=== PATIENT | female | born 1970 | race Caucasian/White ===

== ENCOUNTER 2017-02-05 23:07 | Emergency (ER) | payer OTHER ==
[~2017-02-05] VITALS: Ht 157.4 cm; Wt 56.7 kg
[~2017-02-05 23:07] MED LIST: CLARITIN-D 24 H1 TAB PO; CYCLOBENZAPRINE10 MG PO; DIPHENHYDRAMINE25 M2 PO; EPIPEN 2-PAK1 MG/ML MR; FAMOTIDINE20 M1 PO; MEDROL DOSEPAK4 MG PO; NAPROSYN500 MG PO; PAMPRIN MULTI-S1 TAB PO; PONSTEL250 MG PO; VICODIN ES 7501 TAB PO; [UNRECOGNIZED DRUG - OTHER] PO; [UNRECOGNIZED DRUG - OTHER] PO
== END 2017-02-06 01:32 | disposition home or self-care (01) ==
LOC: ED 23:07
DX: S93.402A Sprain of unspecified ligament of left ankle, initial encounter (principal); S90.02XA Contusion of left ankle, initial encounter; Z98.51 Tubal ligation status; Z98.890 Other specified postprocedural states; Z88.8 Allergy status to other drugs, medicaments and biological substances; W10.9XXA Fall (on) (from) unspecified stairs and steps, initial encounter; Y93.89 Activity, other specified; Y92.89 Other specified places as the place of occurrence of the external cause; Y99.9 Unspecified external cause status

== ENCOUNTER 2020-01-30 23:52 | Emergency (ER) | payer SELFPAY ==
[~2020-01-30] VITALS: Ht 157.4 cm; Wt 56.7 kg
[2020-01-31] MEDS ORDERED: TYLENOL W/CODEI1 TA4 PO (03:18)
== END 2020-01-31 03:47 | disposition home or self-care (01) ==
LOC: ED 23:52
DX: S62.396A Other fracture of fifth metacarpal bone, right hand, initial encounter for closed fracture (principal); Z88.8 Allergy status to other drugs, medicaments and biological substances; W22.01XA Walked into wall, initial encounter; Y93.89 Activity, other specified; Y92.89 Other specified places as the place of occurrence of the external cause; Y99.8 Other external cause status

== ENCOUNTER → 2020-02-11 | Outpatient (CLI) | payer SELFPAY ==
[~2020-02-11] MED LIST changes: +TYLENOL W/CODEI1 TA4 PO
== END | disposition home or self-care (01) ==
LOC: ORTHO 02:11
PROVIDERS: ATTEND Orthopaedic Surgery
DX: S62.336A Displaced fracture of neck of fifth metacarpal bone, right hand, initial encounter for closed fracture (principal); X58.XXXA Exposure to other specified factors, initial encounter; Y93.89 Activity, other specified; Y92.89 Other specified places as the place of occurrence of the external cause; Y99.8 Other external cause status

== ENCOUNTER → 2020-07-30 | Outpatient (CLI) | payer SELFPAY | END | disposition home or self-care (01) | LOC: COVID19 12:27 | PROVIDERS: ATTEND Internal Medicine | DX: U07.1 COVID-19 (principal) ==

== ENCOUNTER 2021-09-11 07:53 | Emergency (ER) | payer SELFPAY ==
[~2021-09-11] VITALS: Ht 157.4 cm; Wt 55.3 kg
[2021-09-11 09:42] LABS: BILIRUBIN Negative (Negative); BLOOD Negative (Negative); CLARITY Turbid (Clear); COLOR Yellow (Yellow); GLUCOSE Negative (Negative); KETONE Negative (Negative); NITRITE Negative (Negative); SPECIFIC GRAVITY 1.015 (1.001-1.030)
[2021-09-11 09:43] LABS: BASO % 0.6 % (0.0-1.0); EOS # 0.1 10*3/uL (0.0-0.4); EOS % 1.6 % (1.0-4.0); HEMATOCRIT 42.4 % (37.0-47.0); LYMPH % 14.8 % (27.0-41.0); MEAN CELL VOLUME 89.6 fl (81.0-99.0); MEAN CORPUSCULAR HGB 30.7 pg (27.0-31.0); MEAN CORPUSCULAR HGB CONC 34.2 g/dl (33.0-37.0); MEAN PLATELET VOLUME 10.2 fl (9.6-12.3); MONO # 0.5 10*3/uL (0.1-1.0); MONO % 8.3 % (3.0-9.0); NEUT # 4.8 10*3/uL (2.3-7.9); NEUT % 74.4 % (47.0-73.0); PLATELET COUNT AUTOMATED 322 10*3/uL (130-400); RED BLOOD COUNT 4.73 10*6/uL (4.10-5.10); RED CELL DISTRI WIDTH 12.7 % (0-14.5); WHITE BLOOD COUNT 6.4 10*3/uL (4.8-10.8)
[2021-09-11 09:43] LABS: LEUKO ESTERASE 1+ (Negative); PH 8.5 (4.5-8.0)
[2021-09-11 09:59] LABS: ALKALINE PHOSPHATASE 68 U/L (45-117); BUN 9 mg/dl (7-24); CHLORIDE 109 mmol/L (98-107); CREATININE 0.81 mg/dL (0.55-1.02); LIPASE 121 U/L (73-393); POTASSIUM 3.1 mmol/L (3.5-5.1); SGOT/AST 18 IU/L (3-35); SGPT/ALT 24 U/L (12-78); SODIUM 139 mmol/L (136-145); TOTAL PROTEIN 6.6 gm/dL (6.4-8.2)
[2021-09-11 10:22] LABS: BACTERIA 2+
[2021-09-11] MEDS ORDERED: Motrin,Rufen800 MG PO (11:49)
[2021-09-11] MEDS ORDERED: ZOFRAN4 MG PO (11:49)
[2021-09-11] MEDS ORDERED: FLOMAX0.4 MG PO (11:49)
[2021-09-11] MEDS ORDERED: PERCOCET 5-3251 EACH PO (11:49)
== END 2021-09-11 12:00 | disposition home or self-care (01) ==
LOC: ED 07:53
PROVIDERS: Emergency Medicine
DX: N20.1 Calculus of ureter (principal); Z88.8 Allergy status to other drugs, medicaments and biological substances; Z98.890 Other specified postprocedural states; Z98.51 Tubal ligation status

== ENCOUNTER → 2023-10-25 | Outpatient (CLI) | payer OTHER ==
[~2023-10-25] MED LIST changes: +FLOMAX0.4 MG PO; +Motrin,Rufen800 MG PO; +PERCOCET 5-3251 EACH PO; +ZOFRAN4 MG PO
== END ==
LOC: US 10-24 16:00
PROVIDERS: ATTEND Family Medicine
DX: R60.0 Localized edema (principal)

== ENCOUNTER → 2023-11-03 | Outpatient (CLI) | payer OTHER ==
[~2023-11-03] MED LIST changes: +ARICEPT10 M1 PO; +DULOXETINE HCL60 MG PO
== END | disposition home or self-care (01) ==
LOC: CARD 00:37
PROVIDERS: ATTEND Internal Medicine Cardiovascular Disease
DX: R07.89 Other chest pain (principal)

== ENCOUNTER 2023-11-14 15:13 | Emergency (ER) | payer OTHER ==
[~2023-11-14] VITALS: Ht 157.4 cm; Wt 55.3 kg
[2023-11-14] MEDS ORDERED: ROPINIROLE HYD0.5 MG PO (16:11)
[2023-11-14] MEDS ORDERED: VITAMIN C 500500 M1 PO (16:12)
[2023-11-14 16:22] LABS: BASO # 0.1 10*3/uL (0.0-0.1); EOS # 0.1 10*3/uL (0.0-0.4); EOS % 2.7 % (1.0-4.0); HEMATOCRIT 45.2 % (37.0-47.0); LYMPH # 1.9 10*3/uL (1.3-4.4); LYMPH % 36.8 % (27.0-41.0); MEAN CELL VOLUME 95.2 fl (81.0-99.0); MEAN CORPUSCULAR HGB 30.7 pg (27.0-31.0); MEAN CORPUSCULAR HGB CONC 32.3 g/dl (33.0-37.0); MEAN PLATELET VOLUME 9.8 fl (9.6-12.3); MONO # 0.6 10*3/uL (0.1-1.0); MONO % 11.9 % (3.0-9.0); NEUT # 2.4 10*3/uL (2.3-7.9); NEUT % 47.2 % (47.0-73.0); PLATELET COUNT AUTOMATED 293 10*3/uL (130-400); RED BLOOD COUNT 4.75 10*6/uL (4.10-5.10); RED CELL DISTRI WIDTH 12.4 % (0-14.5); WHITE BLOOD COUNT 5.1 10*3/uL (4.8-10.8)
[2023-11-14 16:48] LABS: BUN 7 mg/dl (9-23); CHLORIDE 104 mmol/L (98-107); CPK 90 U/L (34-171)
[2023-11-14 16:49] LABS: ETHYL ALCOHOL < 3.0 mg/dl (<3)
== END 2023-11-14 17:40 | disposition home or self-care (01) ==
LOC: ED 15:13
PROVIDERS: Nurse Practitioner Family
DX: F43.20 Adjustment disorder, unspecified (principal); I10 Essential (primary) hypertension; E78.00 Pure hypercholesterolemia, unspecified; Z91.041 Radiographic dye allergy status; Z88.8 Allergy status to other drugs, medicaments and biological substances; Z98.51 Tubal ligation status; Z98.890 Other specified postprocedural states

== ENCOUNTER → 2024-06-04 | Outpatient (CLI) | payer OTHER ==
[~2024-06-04] MED LIST changes: +IOHEXOL 300 MG/ML 100 ML VIAL IV ONE; +Iodixanol 320 100 ML VIAL IV ONE; +Iodixanol 320 100 ML VIAL ONE; +ROPINIROLE HYD0.5 MG PO; +VITAMIN C 500500 M1 PO
== END | disposition home or self-care (01) ==
LOC: CT 01:36
PROVIDERS: ATTEND Family Medicine
DX: N28.1 Cyst of kidney, acquired (principal); R74.8 Abnormal levels of other serum enzymes; R10.30 Lower abdominal pain, unspecified; K57.30 Diverticulosis of large intestine without perforation or abscess without bleeding

== ENCOUNTER → 2024-06-19 | Outpatient (CLI) | payer OTHER ==
[~2024-06-19] MED LIST changes: +Gadoxetate Disodium 10 ML SOL IV ONE; -IOHEXOL 300 MG/ML 100 ML VIAL IV ONE; -Iodixanol 320 100 ML VIAL IV ONE; -Iodixanol 320 100 ML VIAL ONE; +SODIUM CHLORIDE 0.9% 50 ML IV ONE
== END | disposition home or self-care (01) ==
LOC: MRI 06-18 09:00
PROVIDERS: ATTEND Family Medicine
DX: N28.1 Cyst of kidney, acquired (principal); R91.8 Other nonspecific abnormal finding of lung field; D18.03 Hemangioma of intra-abdominal structures; D18.09 Hemangioma of other sites

== ENCOUNTER 2025-04-11 15:07 | Inpatient (IN) | payer MEDICARE ==
[~2025-04-11] VITALS: Ht 157.4 cm; Wt 68.0 kg
[2025-04-11 15:07] VITALS: BP 146/80
[~2025-04-11 15:07] MED LIST changes: -Gadoxetate Disodium 10 ML SOL IV ONE; -SODIUM CHLORIDE 0.9% 50 ML IV ONE
[2025-04-11 15:42] LABS: BASO # 0.1 10*3/uL (0.0-0.1); BASO % 0.7 % (0.0-1.0); EOS # 0.3 10*3/uL (0.0-0.4); EOS % 3.7 % (1.0-4.0); MEAN CELL VOLUME 93.4 fl (81.0-99.0); MEAN CORPUSCULAR HGB 30.5 pg (27.0-31.0); MEAN PLATELET VOLUME 10.8 fl (9.6-12.3); MONO # 0.5 10*3/uL (0.1-1.0); MONO % 6.0 % (3.0-9.0); NEUT # 6.0 10*3/uL (2.3-7.9); NEUT % 73.1 % (47.0-73.0); NUCLEATED RED BLOOD CELL 0.0 % (0.0-0.0); NUCLEATED RED BLOOD CELL 0.0 10*3/uL (0.0-0.0); PLATELET COUNT AUTOMATED 285 10*3/uL (130-400); RED CELL DISTRI WIDTH 13.9 % (0-14.5)
[2025-04-11 16:31] LABS: BUN 8 mg/dl (9-23); SGPT/ALT 15 U/L (5-49)
[2025-04-11 17:34] LABS: BILIRUBIN Negative (Negative); BLOOD Negative (Negative); CLARITY Cloudy (Clear); COLOR Dark Yellow (Yellow); KETONE Trace (Negative); LEUKO ESTERASE 3+ (Negative); NITRITE Negative (Negative); PH 5.5 (4.5-8.0); SPECIFIC GRAVITY >= 1.030 (1.001-1.030); UROBILINOGEN 1.0 E.U./dl (0.0-1.0)
[2025-04-11 17:52] LABS: BACTERIA 3+; CALCIUM OXALATE CRYSTALS 3+; EPITHELIAL CELLS 31-40; HYALINE CAST 0-2; MUCOUS 1+; RBC 0-2 rbc/hpf (0-2); WBC 41-50 wbc/hpf (0-5)
[2025-04-11] MEDS ORDERED: Ondansetron Hydrochloride 4 MG/2 ML VIAL IV PRN (18:35)
[2025-04-11] MEDS ORDERED: BISACODYL 5 MG TAB PO PRN (18:35)
[2025-04-11] MEDS ORDERED: ACETAMINOPHEN 325 MG TAB PO PRN (18:35)
[2025-04-11] MEDS ORDERED: TEMAZEPAM 15 MG CAP PO PRN (18:35)
[2025-04-11 19:38] VITALS: BP 110/80
[2025-04-11] MEDS ORDERED: QUETIAPINE FUMA50 M1 PO (19:38)
[2025-04-11] MEDS ORDERED: LORAZEPAM0.5 M1 PO (19:38)
[2025-04-11] MEDS ORDERED: MEMANTINE HCL10 MG PO (19:39)
[2025-04-11] MEDS ORDERED: BACTRIM 400-801 EACH PO (19:39)
[2025-04-11] MEDS ORDERED: COZAAR50 M1 PO (19:40)
[2025-04-11] MEDS ORDERED: VITAMIN B12500 MC2 PO (19:41)
[2025-04-11] MEDS ORDERED: OMEPRAZOLE40 MG PO (19:41)
[2025-04-11] MEDS ORDERED: KEPPRA250 MG PO (19:42)
[2025-04-11] MEDS ORDERED: TRAZODONE50 MG PO (19:42)
[2025-04-11 19:50] VITALS: BP 86/43
[2025-04-12] VITALS: BP 109/73
[2025-04-12 06:29] LABS: BASO # 0.1 10*3/uL (0.0-0.1); BASO % 1.4 % (0.0-1.0); EOS # 0.4 10*3/uL (0.0-0.4); EOS % 7.8 % (1.0-4.0); MEAN CELL VOLUME 91.1 fl (81.0-99.0); MEAN CORPUSCULAR HGB 29.2 pg (27.0-31.0); MEAN PLATELET VOLUME 11.0 fl (9.6-12.3); MONO # 0.6 10*3/uL (0.1-1.0); MONO % 11.7 % (3.0-9.0); NEUT # 2.6 10*3/uL (2.3-7.9); NEUT % 50.2 % (47.0-73.0); NUCLEATED RED BLOOD CELL 0.0 % (0.0-0.0); NUCLEATED RED BLOOD CELL 0.0 10*3/uL (0.0-0.0); PLATELET COUNT AUTOMATED 287 10*3/uL (130-400); RED CELL DISTRI WIDTH 14.3 % (0-14.5)
[2025-04-12] MEDS ORDERED: OMEPRAZOLE 20 MG CAP PO SCH (06:30)
[2025-04-12 06:51] LABS: BUN 5 mg/dl (9-23); FREE T4 0.96 ng/dl (0.89-1.76)
[2025-04-12] MEDS ORDERED: LORazepam 2 MG/ML VIAL IV ONE (07:40)
[2025-04-12 08:00] VITALS: BP 119/66
[2025-04-12] MEDS ORDERED: CYANOCOBALAMIN 500 MCG TAB PO SCH (10:00)
[2025-04-12] MEDS ORDERED: LORazepam 0.5 MG TAB PO SCH (10:00)
[2025-04-12 12:00] VITALS: BP 106/52
[2025-04-12 20:00] VITALS: BP 128/70
[2025-04-12] MEDS ORDERED: DONEPEZIL 10 MG TAB PO SCH (22:00)
[2025-04-12] MEDS ORDERED: LEVETIRACETAM 250 MG TAB PO SCH (22:00)
[2025-04-13] VITALS: BP 100/60
[2025-04-13 08:00] VITALS: BP 123/79
[2025-04-13] MEDS ORDERED: Water, Sterile 10 ML VIAL IM ONE ×2 (08:50→15:50)
[2025-04-13 16:00] VITALS: BP 120/77
[2025-04-13] MEDS ORDERED: CEPHALEXIN500 M1 PO (17:52)
[2025-04-13] MEDS ORDERED: QUETIAPINE FUMA25 MG PO (17:52)
[2025-04-13 18:38] LABS: BILIRUBIN Negative (Negative); BLOOD Negative (Negative); CLARITY Cloudy (Clear); COLOR Dark Yellow (Yellow); KETONE 1+ (Negative); LEUKO ESTERASE 3+ (Negative); NITRITE Negative (Negative); PH 6.5 (4.5-8.0); SPECIFIC GRAVITY 1.025 (1.001-1.030); UROBILINOGEN 1.0 E.U./dl (0.0-1.0)
[2025-04-13 18:46] LABS: URINE AMPHETAMINES Negative (1000ng/ml); URINE BARBITURATES Negative (200ng/ml); URINE BENZODIAZEPINES Positive (200ng/ml); URINE CANNABINOIDS (THC) Negative (50ng/ml); URINE COCAINE Negative (300ng/ml); URINE METHADONE Negative (300ng/ml); URINE OPIATES Negative (300ng/ml); URINE PHENCYCLIDINE Negative (25ng/ml)
[2025-04-13 18:56] LABS: BACTERIA 2+; EPITHELIAL CELLS 21-30; MUCOUS 1+; WBC 31-40 wbc/hpf (0-5)
== END 2025-04-13 20:30 | disposition short-term general hospital (02) | DRG 689 ==
LOC: ED 15:07 → 4E 18:10 → EDHOLD 18:10 → 4E 19:12
PROVIDERS: Nurse Practitioner Family; ADMIT Internal Medicine; ATTEND Internal Medicine
DX: N30.00 Acute cystitis without hematuria (principal); G93.41 Metabolic encephalopathy; F03.911 Unspecified dementia, unspecified severity, with agitation; Z91.041 Radiographic dye allergy status; R73.9 Hyperglycemia, unspecified; Z78.9 Other specified health status; Z88.8 Allergy status to other drugs, medicaments and biological substances; Z79.899 Other long term (current) drug therapy